=== PATIENT | male | born 1995 | race Caucasian/White ===

== ENCOUNTER 2023-12-27 12:21 | Inpatient (IN) | payer OTHER ==
[2023-12-27] MEDS ORDERED: CEFAZOLIN 2 GM VIAL ONE (12:27)
[2023-12-27] MEDS ORDERED: Boostrix 0.5 ML (Tdap) VIAL (>/=7 yrs of age) ONE (12:28)
[2023-12-27] MEDS ORDERED: fentaNYL 50 mcg/mL 1 mL Vial ONE ×2 (12:33→13:30)
[2023-12-27 12:40] LABS: #Eosinphils 0.1 thou/uL (0.0-0.7); #Monocytes 0.7 thou/uL (0.11-0.59); #Neutrophils 9.5 thou/uL (1.40-6.50); %Basophils 0.3 % (0.0-1.0); %Eosinophils 1.2 % (0.0-10.0); %Lymphocytes 8.9 % (21.0-51.0); %Monocytes 5.7 % (0.0-10.0); %Neutrophils 83.4 % (42.0-75.0); Hematocrit 48.7 % (42.0-52.0); Hemoglobin 16.8 g/dL (14.0-18.0); Mean Corpuscular HGB CONC 34.5 g/dL (32.0-36.0); Mean Corpuscular Hemoglobin 29.1 pg (27.0-31.0); Mean Corpuscular Volume 84.4 fl (78.0-98.0); Mean Platelet Volume 10.3 fL (7.4-10.4); Platelet Count 210 10x3/uL (130-400); RBC Distribution Width 12.7 % (11.5-14.5); Red Blood Cell (RBC) Count 5.77 mill/uL (4.70-6.10); White Blood Cell (WBC) Count 11.4 10x3/uL (4.8-10.8)
[2023-12-27 12:56] LABS: ALT (SGPT) 49 U/L (8-55); AST (SGOT) 48 U/L (5-34); Albumin 4.3 g/dL (3.5-5.0); Alkaline Phosphatase 85 U/L (40-110); Anion Gap 10 mmol/L (10-20); BUN (Urea Nitrogen) 17 mg/dL (8.9-20.6); Bilirubin, Total 0.6 mg/dL (0.2-1.2); Calc. Creatinine Clearance 0 mL/min (70-130); Calcium 9.3 mg/dL (7.8-10.44); Carbon Dioxide 25 mmol/L (22-29); Chloride 106 mmol/L (98-107); Estimated GFR 112; Globulin 3.1 g/dL (2.4-3.5); Glucose 115 mg/dL (70-105); Potassium 3.9 mmol/L (3.5-5.1); Protein, Total 7.4 g/dL (6.0-8.3); Sodium 137 mmol/L (136-145)
[2023-12-27 12:59] LABS: INR-International Normal Ratio 1.1; PTT 28.6 sec (22.9-36.1); Prothrombin Time 13.9 sec (12.0-14.7)
[2023-12-27 13:13] LABS: Troponin I Less than 0.010 ng/mL (< 0.028)
[2023-12-27] MEDS ORDERED: Morphine 4 MG/ML VIAL ONE (14:18)
[2023-12-27] MEDS ORDERED: Ondansetron PF 4 MG/2 ML Vial IVP PRN (15:01)
[2023-12-27] MEDS ORDERED: Dextrose 50% Abboject 50 ML SYRINGE SLOW IVP PRN (15:01)
[2023-12-27] MEDS ORDERED: Glucagon 1 MG/ML KIT IM PRN (15:01)
[2023-12-27] MEDS ORDERED: Ipratropium/Albuterol 3 ML NEB NEB PRN (15:01)
[2023-12-27] MEDS ORDERED: Dextrose 5% in Water 1,000 ML IV PRN (15:01)
[2023-12-27] MEDS ORDERED: Ondansetron ODT 4 MG TAB PO PRN (15:01)
[2023-12-27] MEDS ORDERED: Rib Fracture Protocol PO SCH (15:15)
[2023-12-27 17:00] LABS: Troponin I Less than 0.010 ng/mL (< 0.028)
[2023-12-27] MEDS: Ibuprofen 200 MG TAB PO SCH (17:01)
[2023-12-27] MEDS: Acetaminophen 500 MG TAB PO SCH (17:03)
[2023-12-27] MEDS: traMADol HCl 50 MG TAB PO SCH (17:03)
[2023-12-27] MEDS: Cyclobenzaprine 10 MG TAB PO PRN (17:04)
[2023-12-27 18:32] VITALS: BMI 29.9
[2023-12-27 18:43] LABS: Hematocrit 45.1 % (42.0-52.0); Hemoglobin 15.5 g/dL (14.0-18.0)
[2023-12-27] MEDS: Morphine 2 MG/ML VIAL SLOW IVP PRN (18:47)
[2023-12-27 19:11] LABS: Troponin I Less than 0.010 ng/mL (< 0.028)
[2023-12-27] MEDS: Ipratropium/Albuterol 3 ML NEB NEB SCH (19:19)
[2023-12-27] MEDS: Gabapentin 300 MG CAP PO SCH (20:25)
[2023-12-28 07:25] LABS: #Eosinphils 0.3 thou/uL (0.0-0.7); #Monocytes 0.7 thou/uL (0.11-0.59); %Basophils 0.5 % (0.0-1.0); %Eosinophils 4.5 % (0.0-10.0); %Lymphocytes 19.5 % (21.0-51.0); %Monocytes 9.1 % (0.0-10.0); %Neutrophils 66.1 % (42.0-75.0); Hemoglobin 15.6 g/dL (14.0-18.0); Mean Corpuscular HGB CONC 33.9 g/dL (32.0-36.0); Mean Corpuscular Hemoglobin 28.9 pg (27.0-31.0); Mean Corpuscular Volume 85.2 fl (78.0-98.0); Mean Platelet Volume 10.3 fL (7.4-10.4); Platelet Count 214 10x3/uL (130-400); RBC Distribution Width 13.4 % (11.5-14.5); White Blood Cell (WBC) Count 7.6 10x3/uL (4.8-10.8)
[2023-12-28 08:03] LABS: Anion Gap 11 mmol/L (10-20); BUN (Urea Nitrogen) 16 mg/dL (8.9-20.6); Calc. Creatinine Clearance 196 mL/min (70-130); Calcium 8.9 mg/dL (7.8-10.44); Carbon Dioxide 24 mmol/L (22-29); Chloride 105 mmol/L (98-107); Estimated GFR 120; Glucose 96 mg/dL (70-105); Potassium 3.6 mmol/L (3.5-5.1); Sodium 136 mmol/L (136-145)
[2023-12-28] MEDS: Acetaminophen 500 MG TAB PO SCH (18:47)
[2023-12-28] MEDS: HYDROcodone/Acetaminophen 5/325 mg Tablet PO PRN (20:52)
[2023-12-29] MEDS: Docusate 100 MG CAP PO PRN (11:21)
[2023-12-29] MEDS: Polyethylene Glycol 3350 17 GM Packet PO PRN (11:22)
[2023-12-29 15:44] VITALS: BP 117/76; TEMP 97.4
== END 2023-12-29 17:30 | disposition home or self-care (01) | DRG 200 ==
LOC: ERS 12:21 → 2SE 15:11 → OBSVTOIN 12-29 15:28
PROVIDERS: ADMIT Student in an Organized Health Care Education/Training Program; ATTEND Student in an Organized Health Care Education/Training Program
DX: T79.7XXA Traumatic subcutaneous emphysema, initial encounter (principal); S22.21XA Fracture of manubrium, initial encounter for closed fracture; S22.42XA Multiple fractures of ribs, left side, initial encounter for closed fracture; S42.002A Fracture of unspecified part of left clavicle, initial encounter for closed fracture; V89.2XXA Person injured in unspecified motor-vehicle accident, traffic, initial encounter
CPT/HCPCS: 36415; 36416; 70450; 71045; 71260; 72125; 72170; 74177; 80048; 80053; 83605; 83690; 84484; 85025; 85610; 85730; 86850; 86900; 86901; 90471; 90715; 93005; 94640; 96374; 96375; 96376; G0378; G0390; J2270; J2272; J3010; J7620